=== PATIENT | female | born 2000 | race Caucasian/White ===

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

== ENCOUNTER 2020-12-18 01:49 | Emergency (ER) | payer MEDICAID, OTHER ==
[~2020-12-18] VITALS: Ht 165.1 cm; Wt 53.0 kg
[2020-12-18 01:51] VITALS: BP 110/73
== END 2020-12-18 03:12 | disposition home or self-care (01) ==
LOC: ER 01:49
DX: F29 Unspecified psychosis not due to a substance or known physiological condition (principal); Z86.59 Personal history of other mental and behavioral disorders
CPT/HCPCS: 99283

== ENCOUNTER 2022-09-08 17:36 | Emergency (ER) | payer SELFPAY ==
[~2022-09-08] VITALS: Ht 149.9 cm; Wt 68.0 kg
[2022-09-08 17:46] VITALS: BP 113/67
== END 2022-09-08 21:37 | disposition left against medical advice (07) ==
LOC: ER 17:36
DX: R07.9 Chest pain, unspecified (principal); Z53.21 Procedure and treatment not carried out due to patient leaving prior to being seen by health care provider
CPT/HCPCS: 93005; 99281